=== PATIENT | male | born 1965 | race Two or more races ===

== ENCOUNTER 2019-02-13 07:16 | Day surgery (SDC) | payer BC ==
[~2019-02-13] VITALS: Ht 167.6 cm; Wt 68.0 kg
[2019-02-13] VITALS (8 sets, daily range): BP systolic 126–146; BP diastolic 80–91
[~2019-02-13 07:16] MED LIST: LR 1000ml 1,000 ML IVLG SCH
--- NOTE | 2019-02-13 08:03 | Anethesia Preoperative Eval ---
Anesthesia Pre-op PMH/ROS General Date of Evaluation: February 13, 2019 Anesthesiologist: Wes ASA Score: ASA 2 Mallampati Score Class I : Soft palate, uvula, fauces, pillars visible Class II: Soft palate, uvula, fauces visible Class III: Soft palate, base of uvula visible Class IV: Only hard plate visible Mallampati Classification: Class II Surgeon: Andre Diagnosis: Screening Surgical Procedure: Colonoscopy Anesthesia History: none Family History: no anesthesia problems Allergies: Coded Allergies: No Known Allergies (Unverified , 02/12/19) Medications: see eMAR Patient NPO?: Yes NPO Date: February 12, 2019 NPO Time: 22:00 Past Medical History Cardiovascular: Denies: HTN, CAD, AR, valve dz, arrhythmia, other Pulmonary: Denies: asthma, COPD, GINA, other Gastrointestinal/Genitourinary: Denies: GERD, CRI, ESRD, other Neurologic/Psychiatric: Denies: dementia, CVA, depression/anxiety, TIA, other Endocrine: Denies: DM, hypothyroidism, steroids, other HEENT: Denies: cataract (L), cataract (R), glaucoma, [place] (L), [place] (R), other Hematology/Immune: Reports: other - HIV; Denies: anemia, DVT, bleeding disorder Musculoskeletal/Integumentary: Denies: OA, RA, DJD, DDD, edema, other PSxH Narrative: Denies Anesthesia Pre-op Phys. Exam Physician Exam see chart Constitutional: NAD Cardiovascular: RRR Respiratory: CTA Airway Exam Mallampati Score: Class II MO: full ROM: full Teeth: intact Anesthesia Pre-op A/P Labs see chart Studies Pre-op Studies: EKG - sr Risk Assessment & Plan Assessment: ASA II Plan: MAC Status Change Before Surgery: No Pre-Antibiotics Drug: N/A Suzanna Villafana MD February 13, 2019 08:03
[2019-02-13] MEDS ORDERED: LR 1000ml 1,000 ML IVLG SCH (08:05)
[2019-02-13] MEDS ORDERED: ISENTRESS400 MG ORAL (08:13)
[2019-02-13] MEDS ORDERED: DESCOVY PO (08:13)
[2019-02-13] MEDS ORDERED: VIRAMUNE200 MG PO (08:13)
[2019-02-13] MEDS ORDERED: DiphenhydrAMINE 50mg/ml Inj IVP PRN (08:15)
[2019-02-13] MEDS ORDERED: Lidocaine 1% MPF 10mg/ml 5ml ONE (09:00)
[2019-02-13] MEDS ORDERED: LR 1000ml ONE (09:00)
[2019-02-13] MEDS ORDERED: Propofol 200mg/20ml IV ONE (09:00)
--- NOTE | 2019-02-13 09:07 | Pre-Procedure Note/Attestation ---
Pre-Procedure Note/Attestation Complete Prior to Procedure Planned Procedure: not applicable Procedure Narrative: colonoscopy Indications for Procedure Pre-Operative Diagnosis: screening Attestation I attest that I discussed the nature of the procedure; its benefits; risks and complications; and alternatives (and the risks and benefits of such alternatives ), prior to the procedure, with the patient (or the patient's legal new accounts banking representative). I attest that, if there was a reasonable possibility of needing a blood transfusion, the patient (or the patient's legal new accounts banking representative) was given the [facility] standardized written summary, pursuant to the Robin Vesta Blood Safety Act ([place] Health and Safety Code # 1645, as amended). I attest that I re-evaluated the patient just prior to the surgery and that there has been no change in the patient's H&P, except as documented below: Niels Powell MD February 13, 2019 09:07
--- NOTE | 2019-02-13 09:09 | Short Stay Surgery H&P ---
History of Present Illness History of Present Illness Chief Complaint screening colon HPI Jed Harmon is a 54 year old male who was admitted on for Screening Colonoscopy Patient History Allergies: Coded Allergies: No Known Allergies (Unverified , 02/12/19) PAST MEDICAL HISTORY: (1) HIV (human immunodeficiency virus infection) Medication History Scheduled Nevirapine (Viramune), 200 MG PO DAILY, (Reported) Raltegravir (Isentress), 600 MG ORAL EVERY 12 HOURS, (Reported) [Descovy], 400 MG PO DAILY, (Reported) Review of Systems Cardiovascular: Reports: no symptoms Respiratory: Reports: no symptoms Skeletal: Reports: no symptoms Gastrointestinal: Reports: no symptoms Genitourinary: Reports: no symptoms Neurologic: Reports: no symptoms Endocrine: Reports: no symptoms Hematologic: Reports: no symptoms Physical Exam Vital Signs Last Vital Signs Date Time Temp Pulse Resp B/P (MAP) Pulse Ox O2 Delivery O2 Flow Rate FiO2 02/13/19 08:16 Room Air 02/13/19 08:14 97.3 69 18 146/90 98 Skin: normal HENT: normal Heart: normal Lungs: normal Abdomen: normal Extremities: normal Plan Plan of Care colonoscopy Attestation Are the patient's medical conditions optimized for surgery? Attestation Response: yes Niels Powell MD February 13, 2019 09:09
--- NOTE | 2019-02-13 09:51 | Endoscopy Procedure Note ---
Endoscopy Procedure Note General Indication for Procedure: screening Procedures Performed: colonoscopy Operative Findings/Diagnosis: 2 polyps Specimen: yes Pt Tolerated Procedure Well: Yes Estimated Blood Loss: none Anesthesia Anesthesiologist: isidra Anesthesia: MAC Inserted Devices Implant(s) used?: No Quality Quality of Bowel Preparation: Good Did scope reach the cecum?: Yes Was there any complications?: No GI Core Measures 50 yrs or older w/o bx or poly: No 10yrs. F/U recommended: Yes If not recommended, why?: Above average risk 18 years or older w/prev. colo: No Niels Powell MD February 13, 2019 09:51
--- NOTE | 2019-02-13 09:58 | Immediate Post-Op Evaluation ---
Immediate Post-Op Evalulation Immediate Post-Op Evalulation Procedure: colonoscopy Date of Evaluation: February 12, 2019 Time of Evaluation: 09:58 IV Fluids: 500 Blood Products: 0 Estimated Blood Loss: 0 Urinary Output: 0 Blood Pressure Systolic: 121 Blood Pressure Diastolic: 84 Pulse Rate: 69 Respiratory Rate: 16 O2 Sat by Pulse Oximetry: 100 Temperature (Fahrenheit): 97.1 Pain Score (1-10): 0 Nausea: No Vomiting: No Complications 0 Patient Status: awake, reacts, patent, none Hydration Status: adequate Drug: N/a Suzanna Villafana MD February 13, 2019 09:58
--- NOTE | 2019-02-13 09:58 | 48 Hour Post Anesthesia Eval ---
Post Anesthesia Evaluation Procedure: colonoscopy Date of Evaluation: February 13, 2019 Airway: patent Nausea: No Vomiting: No Pain Intensity: 0 Hydration Status: adequate Cardiopulmonary Status: at baseline Mental Status/LOC: patient returned to baseline Post-Anesthesia Complications: 0 Follow-up care needed: ready to discharge Suzanna Villafana MD February 13, 2019 09:58
--- NOTE | 2019-02-13 17:00 | Procedure Note ---
DATE OF PROCEDURE: 02/13/2019 SURGEON: Niels Powell M.D. PROCEDURE: Colonoscopy with snare polypectomy. ANESTHESIA: Per Dr. Harvey. INSTRUMENT: Olympus adult flexible colonoscope. INDICATION: Screening colonoscopy. REASON FOR PROCEDURE: The procedure, risks, benefits, and possible consequences, including hemorrhage, aspiration, perforation and infection, and alternative treatments, were explained to the patient/legal guardian by Dr. Niels Powell and the patient/legal guardian understood and accepted these risks. PROCEDURE IN DETAIL: After informed consent was obtained and the patient was adequately sedated, first rectal exam was performed, which showed positive for internal hemorrhoids. Then, the scope was advanced from the rectum into the cecum, then subsequently into terminal ileum. Quality of prep was good. The patient had evidence of one large sessile polyp in the ascending colon. This polyp roughly measured about 2 centimeter, was removed in a piecemeal fashion and after the polyp was completely resected, we cauterized rest of the base just to make sure there was no residual left. There was another much smaller polyp, maybe roughly about 5 mm in the proximal transverse colon removed in a cold snare polypectomy technique. The rest of the examination grossly looked within normal limits. Retroflexion of rectum showed evidence of internal hemorrhoids. SUMMARY OF FINDINGS: 1. A 2 cm sessile polyp in the ascending colon, removed with piecemeal fashion. 2. Smaller polyp in the proximal transverse colon, status post cold snare polypectomy. 3. Internal hemorrhoids. RECOMMENDATIONS: 1. Follow pathology. 2. We recommend repeat colonoscopy no later than three years depending on the path. Niels Powell M.D. DR: HEATH JOB#: [id number] CC:
== END 2019-02-13 10:50 | disposition home or self-care (01) ==
LOC: GAS 07:16
DX: Z12.11 Encounter for screening for malignant neoplasm of colon (principal); K63.5 Polyp of colon; K64.8 Other hemorrhoids; B20 Human immunodeficiency virus [HIV] disease; Z79.899 Other long term (current) drug therapy; D12.2 Benign neoplasm of ascending colon; D12.3 Benign neoplasm of transverse colon
CPT/HCPCS: 45380; 45385; J2704; 94003; 94150